=== PATIENT | female | born 1980 | race Caucasian/White ===

== ENCOUNTER 2017-10-03 00:18 | Emergency (ER) | payer MEDICAID ==
[~2017-10-03] VITALS: Ht 162.6 cm; Wt 68.0 kg
[~2017-10-03 00:18] MED LIST: CIPRO 500MG TA500 MG PO; FLEXERIL10 MG PO; IRON TABLETS325 MG PO; MULTI VITAMINS1 TA1 PO; NAPROSYN500 M1 PO; NORCO 325 MG-51 TAB PO
--- NOTE | 2017-10-03 00:40 | Emergency Room Report ---
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 N Clinical Suspician of Infection? N Mental Status: 1 - Regular (Normal Baseline) Sepsis Risk:Low Sepsis Risk Have you (or family members/close friends) recently traveled outside the [place]? N If Yes, where/when: Have you had exposure to infectious disease within the past month? N TB? Other? Specify: Source patient, RN notes reviewed, family, old records Exam Limitations no limitations Comment had swelling and popping sd lt foot with standing tonight Cardiac Chest Pain Chest pain indicative of cardiac No Timing/Duration this evening Severity moderate ALLERGIES Coded Allergies: codeine (I-ITCHING 06/30/17) Home Medications Active Scripts HYDROCODONE/ACETAMINOPHEN ([place] 5-325 Tablet) 1 TAB PO Q6HP PRN moderate to severe pain #12 TAB Prov: 06/26/17 Reported Medications MULTIVITAMIN (One Daily Multivitamin) 1 TAB PO DAILY MISCELLANEOUS (UNKNOWN MEDICATION) 1 TAB PO DAILY History Medical History General CAD? No Angina: No UT: No Hypertension? No Hyperlipidemia? No CHF? No DVT? No PE? No COPD? No Asthma? No Anemia? Yes GERD? No Gastric ulcers? No GI Bleed? No Hernia? Yes Thyroid Problems? No Hypothyroidism? No CVA? No Seizures? No Diabetes? No Renal Insuffiency? No End Stage Renal Disease? No UTI? Yes Stones? Yes BPH? No GB Disease: Yes Nephritic Syndrome? No Asplenia? No Hepatitis? No Sickle Cell Disease? No Arthritis? No Migraines? No Cataracts? No Glaucoma? No MRSA? No HIV? No TB? No Anxiety? No Depression? No Cancer? Yes Site: CERVICAL More? 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 Respiratory denies cough, denies shortness of breath, denies wheezing Cardiovascular denies edema, denies syncope Gastrointestinal denies abdominal pain, denies diarrhea, denies vomiting Genitourinary denies: dysuria, frequency, hesitancy, hematuria. Musculoskeletal see HPI, denies back pain, joint pain, joint swelling, denies neck pain Skin denies rash Psychiatric/Neurological denies headache, denies seizure Physical Exam Vital Signs Vital Signs Date Time Temp Pulse Resp B/P Pulse O2 O2 Flow FiO2 Ox Delivery Rate 10/03 0026 98.5 74 18 101/49 98 - WBC >12,000 or <4,000 or 10% bands? 2 or more SIRS Criteria Met? B/P:101/49 MAP:66 Creatinine >2.0? UA output<0.5ml/kg/hr for 2 hrs? Platelet count >100,000? Lactate >2.0mmol/1? INR >1.2 or PTT > than 60 sec? Evidence of Organ Dysfunction? Provider documented clinical suspician of infection? N Sepsis Criteria Count: 0 Sepsis Risk: Low Sepsis Risk General Appearance no apparent distress Eye Exam - bilateral eye PERRL, bilateral eye EOMI Ear, Nose, Throat normal ENT inspection Neck normal inspection Respiratory Status No: respiratory distress. Cardiovascular regular rate/rhythm Peripheral Pulses Pulses normal Yes Extremities no calf tenderness, swelling, tender dorsum of lt foot with sts and dec rom with neurovascular ok and achilles/calcaneous ok Strength 4 Upper Ext (L), 4 Upper Ext (R), 4 Lower Ext (L), 4 Lower Ext (R) Neurologic alert, acid blower II-XII nml as tested, no motor/sensory deficits Reflexes Reflexes normal No Mental status normal mood/affect Skin intact Medical Decision Making LABS/Meds/Orders Pt receiving controlled substance in ED? No Results/Orders Orders Procedure Date/time Status FOOT-LT-3 VIEWS 10/03 0035 Active XRAY/CT/US XRAY/CT/US XRAY foot XR interpretation by reviewed by me Xray Results no fracture seen Departure Departure Time of Disposition 0051 Disposition DC Home or Self Care(routine) Clinical Impression Primary Impression: Sprain of foot, left Qualifiers: Encounter type: initial encounter Qualified Code: S93.602A - Unspecified sprain of left foot, initial encounter Condition STABLE Referrals JENARO MARTINEZ DPM Patient Instructions DI for Foot Sprain Additional Instructions limited wt bearing and see pcp and podiatry for follow up Discharge Counseling Counseled pt/family regarding diagnosis, test results, medications/RX, follow up needs Prescriptions Current Visit Scripts Prednisone (Prednisone 20MG) 20 MG PO BID #10 TAB ED Critical Care Critical Care No at 0057
--- NOTE | 2017-10-03 00:40 | Emergency Room Report ---
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 N Clinical Suspician of Infection? N Mental Status: 1 - Regular (Normal Baseline) Sepsis Risk:Low Sepsis Risk Have you (or family members/close friends) recently traveled outside the [place]? N If Yes, where/when: Have you had exposure to infectious disease within the past month? N TB? Other? Specify: Source patient, RN notes reviewed, family, old records Exam Limitations no limitations Comment had swelling and popping sd lt foot with standing tonight Cardiac Chest Pain Chest pain indicative of cardiac No Timing/Duration this evening Severity moderate ALLERGIES Coded Allergies: codeine (I-ITCHING 06/30/17) Home Medications Active Scripts HYDROCODONE/ACETAMINOPHEN ([place] 5-325 Tablet) 1 TAB PO Q6HP PRN moderate to severe pain #12 TAB Prov: 06/26/17 Reported Medications MULTIVITAMIN (One Daily Multivitamin) 1 TAB PO DAILY MISCELLANEOUS (UNKNOWN MEDICATION) 1 TAB PO DAILY History Medical History General CAD? No Angina: No PA: No Hypertension? No Hyperlipidemia? No CHF? No DVT? No PE? No COPD? No Asthma? No Anemia? Yes GERD? No Gastric ulcers? No GI Bleed? No Hernia? Yes Thyroid Problems? No Hypothyroidism? No CVA? No Seizures? No Diabetes? No Renal Insuffiency? No End Stage Renal Disease? No UTI? Yes Stones? Yes BPH? No GB Disease: Yes Nephritic Syndrome? No Asplenia? No Hepatitis? No Sickle Cell Disease? No Arthritis? No Migraines? No Cataracts? No Glaucoma? No MRSA? No HIV? No TB? No Anxiety? No Depression? No Cancer? Yes Site: CERVICAL More? 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 Respiratory denies cough, denies shortness of breath, denies wheezing Cardiovascular denies edema, denies syncope Gastrointestinal denies abdominal pain, denies diarrhea, denies vomiting Genitourinary denies: dysuria, frequency, hesitancy, hematuria. Musculoskeletal see HPI, denies back pain, joint pain, joint swelling, denies neck pain Skin denies rash Psychiatric/Neurological denies headache, denies seizure Physical Exam Vital Signs Vital Signs Date Time Temp Pulse Resp B/P Pulse O2 O2 Flow FiO2 Ox Delivery Rate 10/03 0026 98.5 74 18 101/49 98 - WBC >12,000 or <4,000 or 10% bands? 2 or more SIRS Criteria Met? B/P:101/49 MAP:66 Creatinine >2.0? UA output<0.5ml/kg/hr for 2 hrs? Platelet count >100,000? Lactate >2.0mmol/1? INR >1.2 or PTT > than 60 sec? Evidence of Organ Dysfunction? Provider documented clinical suspician of infection? N Sepsis Criteria Count: 0 Sepsis Risk: Low Sepsis Risk General Appearance no apparent distress Eye Exam - bilateral eye PERRL, bilateral eye EOMI Ear, Nose, Throat normal ENT inspection Neck normal inspection Respiratory Status No: respiratory distress. 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 No Results/Orders Orders Procedure Date/time Status FOOT-LT-3 VIEWS 10/03 0035 Active XRAY/CT/US XRAY/CT/US XRAY foot XR interpretation by reviewed by me Xray Results no fracture seen Departure Departure Time of Disposition 0051 Disposition DC Home or Self Care(routine) Clinical Impression Primary Impression: Sprain of foot, left Qualifiers: Encounter type: initial encounter Qualified Code: S93.602A - Unspecified sprain of left foot, initial encounter Condition STABLE Referrals JENARO MARTINEZ DPM Patient Instructions DI for Foot Sprain Additional Instructions limited wt bearing and see pcp and podiatry for follow up Discharge Counseling Counseled pt/family regarding diagnosis, test results, medications/RX, follow up needs Prescriptions Current Visit Scripts Prednisone (Prednisone 20MG) 20 MG PO BID #10 TAB ED Critical Care Critical Care No at 0057
--- OUTSIDE RECORDS SUMMARY | 2017-10-03 00:46 | External Medical Summary Rpt | CCD ---
Author Author , FACUNDO LOREDO Address Unknown Phone [email or web address] Care Team Providers Care Customer Solutions Supervisor Name Role Phone [employer] Unavailable Unavailable INC, [employer] RADHA JAM, RADHA JAM Unavailable Unavailable [facility] Unavailable [facility], [facility], Unavailable Unavailable [facility] Unavailable [facility]available [facility], [facility] CHARLES ADA, CHARLES Unavailable Unavailable [facility] Unavailable [facility] Unavailable Un[facility] Unavailable Unavailable [facility], [facility] Unavailable Unavailable [facility] Unavailable Unavailable [facility], [facility] Unavailable Unavailable [facility], [facility] Unavailable Unavailable CENTER, [facility] Unavailable Unavailable [facility], [facility] Unavailable Unavailable PHYSICIANS, [facility] Unavailable Unavailable [facility], [facility] Unavailable Unavailable -MED, [facility] Unavailable Unavailable , [facility] Purpose Continuity of Care Document - 05-28-2012 through 2016 Problems Code Diagnosis DOS Provider Status [id number] OTHER SIGNS 09-04-2017 [facility] SYMPTOMS IN GROUP BREAST N812 INCOMPLETE 09-04-2017 [facility] UTEROVAG[facility] L PROLAPSE GROUP N819 FEMALE 09-04-2017 [facility] GENITAL PHYSICIANS PROLAPSE GROUP UNSPECIFIED R102 PELVIC AND 09-04-2017 [facility] PERINEAL PHYSICIANS PAIN GROUP [id number] ENCOUNTER 09-04-2017 [facility] WRAPPER HANDS SPRAYER EXAM PHYSICIANS GENERAL RTN GROUP W/ABNORMAL FIND K029 DENTAL 08-11-2017 CARIES [facility] UNSPECIFIED PHYSICIANS Z6826 BODY MASS 08-11-2017 ST INDEX BMI [facility] 26.0-26.9 PHYSICIANS ADULT J02170 PAIN IN 07-15-2017 [facility] [id number] UNS 07-15-2017 [facility] FRACTURE PHYSICIANS SHAFT RT GROUP [facility] INIT ENC CLOS FX [id number] UNS FX 07-15-2017 [facility] INC SUBSQT CLOS FX RTN HEAL [id number] OTH FX 07-15-2017 [facility] [employer] LOWER RT S INC FIBULA INIT ENC CLOS FX S82.891D Other 07-01-2017 fracture of right lower leg, subsequent encounter for closed fracture with routine healing [id number] OT FX RT 07-01-2017 ST LOWER LEG [facility] SUBSQT ENC PHYSICIANS CLOS FX RTN HEAL K48801 PAIN IN 06-30-2017 [facility] [id number] OTH 06-30-2017 [facility] FRACTURE PHYSICIANS SHAFT RT GROUP FIB[facility]A INIT ENC CLOS FX [id number] DISPL FX 06-26-2017 [facility] RT FIBULA INIT CLOS FX [id number] PAIN IN 04-16-2017 ST LEFT ARM [facility] PHYSICIANS R43300 PAIN IN 04-16-2017 ST LEFT LEG [facility] PHYSICIANS R202 PARESTHESIA 04-16-2017 . OF SKIN [facility] QUAN M542 CERVICALGIA 03-28-2017 [facility] Z6827 BODY MASS 12-05-2016 ST INDEX BMI [facility] 27.0-27.9 PHYSICIANS ADULT R002 PALPITATION 11-27-2016 ST S [facility] PHYSICIANS R079 CHEST PAIN 11-27-2016 ST UNSPECIFIED [facility] PHYSICIANS Z72.0 Tobacco use 11-15-2016 R718 OTHER 11-15-2016 ABNORMALITY [facility] BLOOD CELLS EDGE Z302 ENCOUNTER 11-08-2016 [place] [facility] [place] Z9851 TUBAL 11-08-2016 [facility] LIGATION PHYSICIANS STATUS GROUP G609 HEREDITARY 09-25-2016 ST AND [facility] IDIOPATHIC PHYSICIANS NEUROPATHY UNSPECIFIED I491 ATRIAL 09-25-2016 ST PREMATURE [facility] DEPOLARIZAT PHYSICIANS ION R001 BRADYCARDIA 09-25-2016 ST [facility] UNSPECIFIED PHYSICIANS D509 IRON 09-19-2016 ST DEFICIENCY [facility] ANEMIA PHYSICIANS UNSPECIFIED G629 POLYNEUROPA 09-19-2016 THY [facility] UNSPECIFIED PHYSICIANS V47961 PAIN IN 09-19-2016 UNSPECIFIED [facility] ELBOW PHYSICIANS Z9884 BARIATRIC 09-19-2016 SURGERY [facility] STATUS PHYSICIANS Z3009 ENCOUNTER 07-31-2016 [facility] OT GENERAL PHYSICIANS GROUP ONCOLOGY REP SPECIALIST&ADV ICE CONTRACEPT N390 URINARY 07-03-2016 [facility] TRACT PHYSICIANS INFECTION GROUP SITE NOT SPECIFIED N20972 ENCOUNTER 07-03-2016 [facility], WR[facility]PER HANDS SPRAYER EXAM LLC GENERAL RTN W/O ABNORMAL FIND 2809 UNSPECIFIED 11-04-2013 [facility]ON HEMATOLOGY DEFICIENCY CARE INC ANEMIA 73481 LEUKOCYTOSI 11-04-2013 ONCOLOGY S HEMATOLOGY UNSPECIFIED CARE INC 2859 UNSPECIFIED 10-28-2013 ANEMIA [facility] PHYSICIANS 7840 HEADACHE 10-28-2013 [facility] PH[facility]IC[facility]ANS 5990 URINARY 10-04-2013 TRACT [facility] INFECTION PHYSICIANS SITE NOT SPECIFIED V242 ROUTINE 07-23-2013 [place] [facility]LLOW-UP [facility] [place] 650 NORMAL 07-20-2013 DELIVERY [facility] PHYSICIANS V222 07-20-2013 STATE, [facility] INCIDENTAL PHYSICIANS V270 OUTCOME OF 07-20-2013 DELIVERY [facility] SINGLE PHYSICIANS LIVEBORN 21114 CLOSED 07-16-2013 CHARLES ARROYO FRACTURE OF HEAD OF RADIUS 7605 FETUS OR 07-15-2013 [facility] AFFECTED BY AND MATERNAL INJURY V239 UNSPECIFIED 07-15-2013 [facility] HIGH-RISK MATERNAL AND 94853 SUPRAVENTRI 07-02-2013 CULAR [facility] PREMATURE PHYSICIANS BEATS 7851 PALPITATION 07-02-2013 S [facility] PHYSICIANS 25381 SHORTNESS 07-02-2013 ST OF BREATH [facility] PHYSICIANS V4586 BARIATRIC 07-02-2013 SURGERY [facility] STATUS PHYSICIANS 7802 SYNCOPE AND 06-18-2013 COLLAPSE [facility] PHYSICIANS V221 SUPERVISION 06-18-2013 ST OF OTHER [facility] NORMAL PHYSICIANS 3970 DISEASES OF 04-29-2013 TRICUSPID [place] VALVE [facility] 4240 MITRAL 04-29-2013 VALVE [place] DISORDERS [facility] 19627 OTHER 04-29-2013 ALTERATION [place] OF PHYSICIANS CONSCIOUSNE [place] 6146 PELVIC 04-16-2013 [facility] PERITONEAL MATERNAL ADHESIONS, -MED FEMALE 96093 TOB USE D/O 04-16-2013 [facility] COMP PG MATERNAL /PP -MED ANTEPARTM COND/COMP 76546 UNS 04-16-2013 [facility] ABNORM MGMT MATERNAL MOTH -MED ANTPRTM COND/COMP 77236 OTH CURRENT 04-10-2013 ST MAT CONDS [facility] CLASSIFIABL MEDICAL E ELSW CENTER ANTPRTM 99120 CONTACT 04-10-2013 ST DERMATITIS& [facility] OTHER MEDICAL ECZEMA DUE CENTER TO SUNBURN 7919 OTHER 03-31-2013 ST NONSPECIFIC [facility] FINDING PHYSICIANS EXAMINATION OF URINE 49039 BARIATRIC 03-10-2013 ST SURG STS [facility] COMP PG MEDICAL /PP AP CENTER COND/COMP V8904 SUSPECTED 03-02-2013 ST PROBLEM [facility] WITH PHYSICIANS GROWTH NOT FOUND 73770 OTHER 02-02-2013 [facility] SPECIFED MATERNAL COMPLICATIO -MED N ANTEPARTUM 6260 ABSENCE OF 01-29-2013 [facility] V7241 01-05-2013 [facility] OR TEST CENTER NEGATIVE RESULT 7242 [place] 11-24-2012 [facility] 65257 ABDOMINAL 11-24-2012 PAIN, [facility] UNSPECIFIED MEDICAL SITE CENTER 93951 ABDOMINAL 11-24-2012 RADIOLOGY PAIN, ASSOCIATES GENERALIZED OF [facility] V4589 OTHER 11-24-2012 [facility] [place] L STATUS MEDICAL OTHER CENTER 9779 POISONING 08-14-2012 UNSPECIFIED [facility] PHYSICIANS DRUG/MEDICI NAL SUBSTANCE 69385 OT PARALYT 08-13-2012 [facility] SYND AFFCT CO UNS AMBULANCE [place] [address] MUSCLE 08-13-2012 [facility] WEAKNESS CO (GENERALIZE AMBULANCE D) [facility]AX[facility] 78993 ALTERED 08-13-2012 [facility] STATUS OF [facility] 6259 UNSPEC 07-30-2012 SYMPTOM [facility] ASSOC PHYSICIANS W/FEMALE GENITAL ORGANS 03386 UNSPEC 07-09-2012 ST VENTRAL [facility] BRIAN W/O PHYSICIANS MENTION OBST/GANGRE N V7231 ROUTINE 06-26-2012 GYNECOLOGIC [facility] AL PHYSICIANS EXAMINATION V762 SCREENING 06-26-2012 [facility] NEOPLASM OF ER THE CERVIX 3671 MYOPIA 05-28-2012 [facility] SCHAFFER D50.9 Iron deficiency anemia, unspecified F12.10 Cannabis abuse, uncomplicat ed G60.9 Hereditary and idiopathic neuropathy, unspecified K02.9 Dental caries, unspecified M79.602 Pain in left arm M79.605 Pain in left leg R00.2 Palpitation s R07.9 Chest pain, unspecified R10.2 Pelvic and perineal pain R20.2 Paresthesia of skin R53.82 Chronic fatigue, unspecified R71.8 Other abnormality of red blood cells Z00.00 Encounter for general adult medical examination without abnormal findings Z13.89 Encounter for screening for other disorder Z23 Encounter for immunizatio n Z71.3 Dietary counseling and surveillanc e Z71.89 Other specified counseling Z98.84 Bariatric surgery status Medications Na ND Rx Da Fi Fi Am Da Di Ph RX Ph St me C No te ll ll ou ys ag ar # ys at rm s nt no ma ic us Or Da si cy ia de te s n re d OX 42 10 11 15 2 00 KE Ac YC 85 -1 -1 .0 00 NT ti OD 80 7- 0- 00 00 UC ve ON 10 20 20 92 [place] -A 30 17 17 18 CE 1 31 CV TA S NM PH NO AR PH MA EN CY 7. LL 5- C, 32 5 DB A CV S PH AR MA CY #0 54 37 CH 00 10 11 47 10 00 KE Ac LO 11 -1 -1 3. 00 NT ti RH 62 7- 0- 00 00 UC ve EX 00 20 20 0 92 [place] ID 11 17 17 18 IN 6 32 CV E S 0. PH 12 AR % MA RI CY NS E LL C, DB A CV S PH AR MA CY #0 54 37 IB 49 10 10 60 30 00 KE Ac UP 48 -0 -2 .0 00 NT ti RO 30 2- 7- 00 00 UC ve FE 60 20 20 91 [place] N 45 17 17 02 80 0 13 CV 0 S MG PH AR TA MA BL CY ET LL C, DB A CV S PH AR MA CY #0 54 37 AM 00 10 10 14 7 00 KE Ac OX 09 -0 -2 .0 00 NT ti IC 33 2- 7- 00 00 UC ve IL 10 20 20 91 [place] LI 90 17 17 90 N 5 43 CV 50 S 0 PH MG AR MA CA CY PS UL LL E C, DB A CV S PH AR MA CY #0 54 37 HY 53 08 09 [address] 74 -2 -2 .0 00 NT ti OC 60 8- 2- 00 00 UC ve OD 10 20 20 91 [place] ON 90 17 17 16 -A 1 82 CV CE S TA PH NM AR NO MA PH CY EN LL 5- C, 32 5 DB A CV S PH AR MA CY #0 54 37 IB 49 08 09 60 30 00 KE Ac UP 48 -2 -1 .0 00 NT ti RO 30 1- 5- 00 00 UC ve FE 60 20 20 91 [place] N 45 17 17 02 80 0 13 CV 0 S MG PH AR TA MA BL CY ET LL C, DB A CV S PH AR MA CY #0 54 37 HY 53 08 09 [address] 74 -2 -1 .0 00 NT ti OC 60 2- 5- 00 00 UC ve OD 10 20 20 91 [place] ON 17 17 04 -A 1 91 CV CE S TA PH NM AR NO MA PH CY EN LL 5- C, 32 5 DB A CV S PH AR MA CY #0 54 37 LO 00 05 06 3. 1 00 KE Ac RA 37 -0 -0 00 00 NT ti ZE 82 8- 2- 0 00 UC ve PA 45 20 20 89 [place] M 71 17 17 00 1 0 94 CV MG S PH TA AR BL MA ET CY LL C, DB A CV S PH AR MA CY #0 54 37 GA 69 03 04 90 30 00 KE Ac BA 09 -0 -0 .0 00 NT ti PE 70 9- 7- 00 00 UC ve NT 81 20 20 87 [place] IN 41 17 17 74 2 14 CV 30 S 0 PH MG AR MA CA CY PS UL LL E C, DB A CV S PH AR MA CY #0 54 37 DU 66 03 04 30 30 00 KE Ac LO 99 -0 -0 .0 00 NT ti XE 30 9- 7- 00 00 UC ve TI 66 20 20 87 [place] NE 33 17 17 74 0 13 CV HC S L PH DR AR MA 30 CY MG LL C, CA P DB A CV S PH AR MA CY #0 54 37 RO 43 01 02 60 30 00 KE Ac PI 54 -2 -2 .0 00 NT ti NI 70 6- 4- 00 00 UC ve RO 27 20 20 86 [place] LE 01 17 17 82 0 40 CV HC S L PH 1 AR MG MA CY TA BL LL ET C, DB A CV S PH AR MA CY #0 54 37 FE 00 01 02 60 30 00 KE Ac RR 53 -0 -0 .0 00 NT ti OU 61 6- 3- 00 00 UC ve S 00 20 20 86 [place] FERREIRA 90 17 17 39 LF 1 54 CV AT S E PH 32 AR 5 MA MG CY TA LL BL C, ET DB A CV S PH AR MA CY #0 54 37 Encounters Encounter Start End Date Code Location Performer Type Date [facility] [place] [address] [facility] [place] [address] [address] [facility] [address] - [address] [facility] [address] [facility] - OTHER 7 7 [facility] [place] - 6 6 [facility] - OTHER 6 6 [facility] [place] - 6 6 [facility] [place] - 6 6 [facility] - 3 3 [facility] - 3 3 [facility] - 3 [address] [facility] - 3 3 [facility] - 3 [address] [facility] - 3 [address] [facility] - 3 [address] [facility] - 3 [address] [facility] - 3 [address] [facility] - 3 [address] [facility] [address] - [address] [facility] [address] - [address] [facility] [address] - [address] [facility] [address] - 2 2 [facility]
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
--- OUTSIDE RECORDS SUMMARY | 2017-10-03 00:48 | External Medical Summary Rpt | CCD ---
Demographics Preferred Language Grenadian Marital Status Unknown Yarsanism Affiliation Unknown Race Unknown Ethnic Group Unknown Author Author , FACUNDO Organization FACUNDO Address Unknown Phone Immunization Unable to retrieve immunization data due to connection failure with Immunization Registry. Please try again later.
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
--- OUTSIDE RECORDS SUMMARY | 2017-10-03 00:48 | External Medical Summary Rpt | CCD ---
Demographics Preferred Language Turkish Marital Status Unknown Latter-Day Affiliation Unknown Race Unknown Ethnic Group Unknown Author Author , FACUNDO Organization FACUNDO Address Unknown Phone Immunization Unable to retrieve immunization data due to connection failure with Immunization Registry. Please try again later.
[2017-10-03] MEDS ORDERED: PREDNISONE 20MG20 MG PO (00:56)
[2017-10-03 01:05] VITALS: BP 101/49
--- NOTE | 2017-10-03 09:14 | RADIOLOGY REPORT PS360 ---
FOOT-LT-3 VIEWS COMPARISON: Right foot 06/30/2017 HISTORY: Left foot pain TECHNIQUE: AP lateral and oblique views FINDINGS: There is mild hallux valgus. The tarsal bones metatarsals and phalanges otherwise appear normal. The plantar arch is normal. There is a small spur of the calcaneus at insertion of the Achilles tendon and plantar tendon. IMPRESSION: Minor hallux valgus, no acute pathology noted
[2017-10-17] MEDS ORDERED: HYDROCODONE-APA1 TA1 PO (06:23)
== END 2017-10-03 01:05 | disposition home or self-care (01) ==
LOC: ER 00:18
DX: S93.602A Unspecified sprain of left foot, initial encounter (principal); F17.210 Nicotine dependence, cigarettes, uncomplicated

== ENCOUNTER → 2017-10-10 | Outpatient (CLI) | payer MEDICAID ==
[~2017-10-10] MED LIST changes: +HYDROCODONE-APA1 TA1 PO; +PREDNISONE 20MG20 MG PO
[2017-10-10 11:43] LABS: URINE BILIRUBIN - DIPSTICK NEGATIVE (NEG); URINE BLOOD TRACE-INTACT (NEG)
[2017-10-10 12:29] LABS: HEMOGLOBIN 12.5 g/dL (12.2-16.2); LYMPH # 3.3 K/mm3 (0.7-4.5); LYMPH % 33.1 % (10-50.0)
[2017-10-10 12:37] LABS: BUN 6 mg/dL (7-18)
[2017-10-10 12:40] LABS: GFR (ESTIMATED) 71 ML/MIN (59-)
[2017-10-10 13:07] LABS: URINE SQUAMOUS CELLS OCC #/hpf (0-5)
== END ==
LOC: LAB 11:04
PROVIDERS: Obstetrics & Gynecology
DX: R10.2 Pelvic and perineal pain (principal); Z01.812 Encounter for preprocedural laboratory examination